=== PATIENT | male | born 1985 | race African-American/Black ===

== ENCOUNTER 2016-07-09 09:53 | Emergency (ER) | payer BC ==
[~2016-07-09] VITALS: Ht 180.3 cm; Wt 98.0 kg
[2016-07-09 11:07] LABS: ADD MIUA? NO; BILIRUBIN NEGATIVE; BLOOD NEGATIVE; COLOR YELLOW ((YELLOW)); GLUCOSE (STRIP) NEGATIVE; KETONES 5; LEUKOCYTES NEGATIVE; NITRITE NEGATIVE; PROTEIN (STRIP) 30; SPECIFIC GRAVITY 1.028 (1.000-1.030); UROBILINOGEN 0.2 MG/DL (0.2-1.0)
[2016-07-09 11:18] LABS: EOSINOPHIL (%) 0 % (0-5); HEMATOCRIT 49.3 % (38.0-50.0); IMMATURE GRANULOCYTE (%) 0.4 % (0.0-0.7); INSTRUMENT ABS NEUTROPHIL CT 8.7 K/uL; LYMPHOCYTE COUNT 0.9 K/uL (1.0-2.8); MCHC 33.3 G/DL (30.0-36.0); MCV 87.1 FL (86-99); MEAN PLAT.VOLUME 9.1 uM^3 (9.0-12.4); MONOCYTE (%) 2.9 % (3-12); MONOCYTE COUNT 0.3 K/uL (0-0.8); NEUTROPHIL (%) 87.5 % (45-76); NEUTROPHIL COUNT 8.7 K/uL (1.8-6.4); PLATELET COUNT 242 K/uL (156-360); RBC DIS.WIDTH-SD 41.3 % (39-53); RED BLOOD COUNT 5.66 M/uL (4.00-5.50)
[2016-07-09 11:29] LABS: CHLORIDE 101 mEq/L (99-109); POTASSIUM 4.5 mEq/L (3.7-5.4); SODIUM 139 mEq/L (136-147)
[2016-07-09 11:31] LABS: GLUCOSE 98 mg/dL (70-99)
[2016-07-09 11:33] LABS: ANION GAP 13 MEQ/L (2-14); TOTAL BILIRUBIN 0.7 mg/dL (0.0-1.0)
[2016-07-09 11:35] LABS: ALKALINE PHOSPHATASE 43 IU/L (3-129); GFR ESTIMATE (CALCULATED) > 59 mL/min/
[2016-07-09 11:36] LABS: UREA NITROGEN (BUN) 22 mg/dL (9-23)
[2016-07-09 11:38] LABS: LIPASE 13 U/L (1.0-51.0)
[2016-07-09] MEDS ORDERED: BENTYL20 MG PO (12:25)
[2016-07-09] MEDS ORDERED: ZOFRAN ODT4 MG PO (12:25)
[2016-07-09] MEDS ORDERED: ULTRACET1 TABLET PO (12:26)
[2016-07-09 12:44] VITALS: BP 148/99
== END 2016-07-09 12:45 | disposition home or self-care (01) ==
LOC: EME 09:53
PROVIDERS: Physician Assistant
DX: K52.9 Noninfective gastroenteritis and colitis, unspecified (principal)
CPT/HCPCS: 74176; 80053; 81003; 83690; 85025; 99281; 99284; J1885